=== PATIENT | male | born 1985 | race Caucasian/White ===

== ENCOUNTER → 2020-07-29 | Outpatient (CLI) | payer BC ==
[2020-07-29 10:41] LABS: Basophils % (A) 1 %; Eosinophils # (A) 0.2 k/uL (0-0.7); Eosinophils % (A) 3 %; HCT 48.6 % (39.0-53.0); HGB 15.6 gm/dL (13.0-17.5); Lymphocytes # (A) 2.2 k/uL (1.0-4.8); Lymphocytes % (A) 35 %; MCH 26.5 pg (25.0-35.0); MCHC 32.1 g/dL (31.0-37.0); MCV 82.7 fL (80.0-100.0); Mean Platelet Volume 8.5; Monocytes # (A) 0.5 k/uL (0-1.0); Monocytes % (A) 7 %; Neutrophils # (A) 3.3 k/uL (1.3-7.7); Neutrophils % (A) 53 %; Platelet Count 209 k/uL (150-450); RBC 5.88 m/uL (4.30-5.90); RDW 12.7 % (11.5-15.5); WBC 6.2 k/uL (3.8-10.6)
[2020-07-29 16:46] LABS: Albumin 4.8 g/dL (3.80-4.90); Albumin/Globulin Ratio 2.53 (1.60-3.17); Anion Gap 7.7 mmol/L (4.00-12.00); BUN/Creat Ratio 16.67 Ratio (12.00-20.00); Calcium 9.5 mg/dL (8.7-10.3); Carbon Dioxide 26.3 mmol/L (21.6-31.8); Chol/HDL Ratio 4.74; Globulin 1.9 g/dL (1.6-3.3); LDL Cholesterol,Calculated 139.8 mg/dL (0.0-131.0); Non-African American GFR(CKD) 76.8 (60.0-200.0); Potassium 4.7 mmol/L (3.5-5.5); Total Bilirubin 0.7 mg/dL (0.2-1.2); Total Protein 6.7 g/dL (6.2-8.2); VLDL Calculation 17.2 mg/dL (5.00-40.00)
== END | disposition home or self-care (01) ==
LOC: LABWHC1 09:42
PROVIDERS: ATTEND Family Medicine
DX: Z00.00 Encounter for general adult medical examination without abnormal findings (principal)
CPT/HCPCS: 36415; 80053; 80061; 84443; 85025

== ENCOUNTER → 2021-11-23 | Outpatient (CLI) | payer BC ==
--- NOTE | 2021-11-23 15:57 | CONS ---
CONSULTATION 86-year-old gentleman has been evaluated in [facility] for snoring and witnessed episodes of stopped breathing during sleep. I saw patient in 2016. At that time, sleep study was recommended, but insurance did not approve sleep test. HISTORY OF PRESENT ILLNESS SLEEP-WAKE EVALUATION: SLEEP SCHEDULE: Patient's usual sleep schedule on weekdays from 10 p.m. to 5:30 a.m. and on weekends from 10 p.m. to 7 a.m. FALLING ASLEEP: No problems with falling asleep, although he has TV set in bedroom. DURING SLEEP: According to his , he has loud snoring and witnessed episodes of stopped breathing during sleep. The patient has positive history of episodes of heartburn during the sleep. He wakes up from sleep up to 10 times with up to 3 episodes of nocturia. DURING THE DAY/SLEEP WAKE EVALUATION: No history of hypnagogic hallucinations and the patient very rarely see any dreams at all. [place] Sleepiness Scale is in very high range of 20. PAST MEDICAL HISTORY: Positive for acid reflux. PAST SURGICAL HISTORY: None. FAMILY HISTORY: Hypertension, heart problems, hyperlipidemia, stroke, asthma, cancer. SOCIAL HISTORY: Negative for smoking or using alcohol. REVIEW OF SYSTEMS: Multiple awakenings from sleep, snoring, witnessed episodes of stopped breathing during the sleep. No fevers. No double vision. No recent chest pain. No shortness of breath. No abdominal pain. No bleeding episodes. No blood in the stool or urine. No seizure episodes. PHYSICAL EXAMINATION: GENERAL: gentleman without distress. BP 111/77, HR 70, RR 15, height 5 feet 7 inches, weight 198.0, body mass index 31.0, temperature 97.4, oxygen saturation at room air 98%. Oropharynx: Low position of soft palate. NECK: 18 inches in circumference. Neck: Supple, no JVD. Thyroid is not palpable. LUNGS: Clear to percussion and to auscultation. Good air exchange. No wheezing or rhonchi. HEART: S1, S2 regular. No murmurs, gallops, or rubs. ABDOMEN: Soft and nontender. Bowel sounds are present. No organomegaly appreciated. EXTREMITIES: No clubbing or cyanosis. SCRAP SAWYER: Awake, alert, and oriented X3. Cranial nerves 2 to 7 intact. There is no fasciculation or atrophy. noted. No focal deficits observed. IMPRESSION: 1. Loud snoring, witnessed episodes of stopped breathing during sleep, low position of soft palate, wide neck, [place] Sleepiness Scale significantly increased to 20, obstructive sleep apnea-hypopnea syndrome. 2. Mild obesity, body mass index 31.0. 3. Acid reflux. PLAN: 1. Home sleep apnea test for evaluation of patient breathing during sleep. 2. Following plan after reviewing results of sleep study. 3. CPAP/BiPAP titration if sleep study confirms obstructive sleep apnea-hypopnea syndrome. 4. Preferable position during sleep on the side. 5. No driving if patient feels any sleepiness. 6. I will see patient for follow up visit to explain results of testing and following plan. Thank you very much for referring this patient for consultation. Sincerely, Parviz Brunner MD, PhD, FAASM Diplomat of [employer] Sleep Medicine Board of [employer] Ink Jet Operator of [facility] [place] MMODL / [place]: [id number] /
== END ==
LOC: SLEEP 13:18
PROVIDERS: ATTEND Internal Medicine
DX: G47.33 Obstructive sleep apnea (adult) (pediatric) (principal); E66.9 Obesity, unspecified; K21.9 Gastro-esophageal reflux disease without esophagitis; Z68.31 Body mass index [BMI] 31.0-31.9, adult
CPT/HCPCS: 99211

== ENCOUNTER → 2022-04-06 | Outpatient (CLI) | payer OTHER ==
--- NOTE | 2022-04-06 21:36 | SFUN ---
SLEEP CENTER FOLLOW UP NOTE DATE OF SERVICE: 04/06/2022 This 36-year-old gentleman has been followed in Sleep Center for treatment of obstructive sleep apnea-hypopnea syndrome. Recently the patient had sleep studies. Home sleep apnea test showed extremely severe obstructive sleep apnea with severe oxygen desaturation. I discussed results of sleep studies with the patient in detail. Today is his first visit after he was started on treatment with CPAP. He feels better while using his CPAP. He sleeps better and feels better during the day. [place] Sleepiness Scale today is 3. During the first visit, [place] Sleepiness Scale was around 20. I checked his CPAP unit. Range of the pressure 5-18, average pressure 16.1. Usage is 28/30 nights and 77% of the time for more than 4 hours, average 4 hours 57 minutes. Leak is only 7.2 L/minute, which is very mild. Apnea-hypopnea index is 3.3, which is normal. PHYSICAL EXAMINATION: GENERAL: Pleasant patient in no distress. VITAL SIGNS: BP 121/76, HR 74, RR 16, weight 199 pounds, temperature 98.3, oxygen saturation at room air 97%. HEENT: PERRLA, EOMI, evaluation of oropharynx showed tongue protrudes midline. Low position of soft palate. NECK: Supple, no JVD. Thyroid is not palpable. LUNGS: Clear to percussion and to auscultation. Good air exchange. No wheezing or rhonchi. HEART: S1, S2 regular. No murmurs, gallops, or rubs. ABDOMEN: Soft and nontender. Bowel sounds are present. No organomegaly appreciated. EXTREMITIES: No clubbing or cyanosis. CIRCUIT BOARD REPAIR TECHNICIAN: Awake, alert, and oriented X3. Cranial nerves 2 to 7 intact. There is no fasciculation or atrophy. noted. No focal deficits observed. IMPRESSION: 1. Extremely severe obstructive sleep apnea-hypopnea syndrome; apnea-hypopnea index 96.2 with oxygen desaturation to 73%. Oxygen level was below normal for 114 minutes during the sleep test. The patient demonstrated great compliance with treatment, benefitting from treatment. Normal respiration on CPAP. 2. Mild obesity. 3. Acid reflux. PLAN: 1. Patient will continue to use PAP equipment every night for the whole night. 2. Sleep hygiene with regular time in bed for at least 7-1/2 to 8 hours. 3. Precautions related to driving. No driving if feeling sleepiness. 4. I will maintain all necessary prescription for PAP supplies including mask, tube, filters. 5. Watching weight. 6. Follow-up visit in 6 months or earlier if patient has any problems. 7. I explained to the patient about regulation of humidity; the patient complained that some nights there is no water in the humidifier in the morning. Thank you very much for allowing me to participate in the management of your patient. Sincerely, Parviz Brunner MD, PhD, FAASM Diplomat of [employer] Sleep Medicine Board of [employer] On Call Pharmacy Technician of [facility] [place] MMODL / IJN: [id number] /
== END ==
LOC: SLEEP 15:21
PROVIDERS: ATTEND Internal Medicine
DX: G47.33 Obstructive sleep apnea (adult) (pediatric) (principal); Z99.89 Dependence on other enabling machines and devices; E66.9 Obesity, unspecified; K21.9 Gastro-esophageal reflux disease without esophagitis; Z88.8 Allergy status to other drugs, medicaments and biological substances; F17.200 Nicotine dependence, unspecified, uncomplicated